=== PATIENT | male | born 1985 | race Caucasian/White ===

== ENCOUNTER 2024-03-05 10:31 | Day surgery (SDC) | payer OTHER ==
[~2024-03-05] VITALS: Ht 332.7 cm; Wt 115.9 kg
[2024-03-05] VITALS (12 sets, daily range): BP systolic 114–148; BP diastolic 83–107; PULSE 62–93; TEMP 98.5
[2024-03-05] MEDS ORDERED: 1/2 NS 1,000 ML IV SCH (10:45)
[2024-03-05 11:08] LABS: HEMATOCRIT 44.4 % (42.0-52.0); HEMOGLOBIN 15.8 g/dl (13.5-18.0); MEAN CELL VOLUME 89 fl (80.0-100.0); MEAN CORPUSCULAR HEMOGLOBIN 32 pg (27-31); MEAN CORPUSCULAR HGB CONC 36 g/dl (33.0-37.0); MEAN PLATELET VOLUME 10.2 fl (7.4-10.4); PLATELET COUNT 184 K/mm3 (130-400); RED BLOOD COUNT 4.98 M/mm3 (4.20-5.60); REDCELL DISTRIBUTION WIDTH-CV 12.2 % (11.5-14.5)
[2024-03-05 11:18] LABS: PROTHROMBIN TIME 10.6 SECONDS (9.7-12.8)
[2024-03-05 11:21] LABS: PARTIAL THROMBOPLASTIN TIME 30.6 SECONDS (26.0-37.0)
[2024-03-05 11:29] LABS: CALCIUM 9.1 mg/dL (8.4-10.2); CREATININE, serum 1.58 mg/dL (0.72-1.25); POTASSIUM 4.2 mEq/L (3.5-4.5)
[2024-03-05] MEDS ORDERED: CRESTOR20 MG PO (11:40)
[2024-03-05] MEDS ORDERED: TOPROL XL 25MG25 MG PO (11:41)
[2024-03-05] MEDS ORDERED: PLAVIX 75MG TAB75 MG PO (11:41)
[2024-03-05] MEDS ORDERED: HYDROCHLOROTH12.5 MG PO (11:42)
[2024-03-05] MEDS ORDERED: PROZAC 20MG20 MG PO (11:42)
[2024-03-05] MEDS ORDERED: COZAAR 25MG25 MG/TAB PO (11:43)
--- NOTE | 2024-03-05 15:59 | NUR ---
See Merge report for procedural sedation/notes
[2024-03-05] MEDS ORDERED: Heparin 1,000 UNITS/ML 10 ML Multi-Dose VIAL IA SCH (16:02)
[2024-03-05] MEDS ORDERED: fentaNYL 50 MCG/ML 2 ML VIAL IV SCH (16:06)
[2024-03-05] MEDS ORDERED: Midazolam 2 MG/2 ML VIAL IV SCH (16:06)
[2024-03-05] MEDS ORDERED: Iohexol 350 - 100 ML VIAL INCOR ONE (16:07)
[2024-03-05] MEDS ORDERED: Nitroglycerin 100 MCG/ML (Cath Lab) 10 ML VIAL IV SCH (16:07)
[2024-03-05] MEDS ORDERED: Naloxone 0.4 MG/ML VIAL IV PRN (16:30)
--- NOTE | 2024-03-05 16:38 | NUR ---
Pt back to [facility] - bedside handoff performed with GARRET Mariee: vitals initiated and stable, rt radial access site stable, call light in reach, tolerating PO intake well.
--- NOTE | 2024-03-05 19:24 | NUR ---
Pt ambulated to [facility] with a steady gait. Pt was scheduled for a [facility]. EKG done. IV started, labs drawn. Consent for the procedure signed. Meds and HX reviewed with the pt. Post procedure the pt came back to [facility]. Right radial site assessed, clean, dry, and intact. Pt was offered something to eat and drink, accepted a water and a meal was ordered. The pt was bedrest for 2 hrs. At the end of the 2 hr recovery air was released from the radial band. 2 mls of air about every 15 minutes. The right radial site remained clean with no drainage throughout the process. Once all the air was released from the band the site was cleaned and a bandaid was applied. The deflated radial band was reapplied as a reminder to limit the extremity use. Discharge education and information discussed with the pt. No questions at this time. IV dc'd and wrapped with coban. Pt exited the unit by wheelchair accompanied by this nurse to their friends truck.
== END 2024-03-05 19:17 | disposition home or self-care (01) ==
LOC: COL.CAR 10:31
PROVIDERS: Internal Medicine Interventional Cardiology
DX: R94.39 Abnormal result of other cardiovascular function study (principal)
CPT/HCPCS: C1769; J1644; J2250; J3010; Q9967